=== PATIENT | female | born 1995 | race Hispanic/Latino ===

== ENCOUNTER 2021-08-18 08:36 | Emergency (ER) | payer OTHER ==
[~2021-08-18] VITALS: Ht 162.6 cm; Wt 59.0 kg
[2021-08-18] MEDS ORDERED: IBUPROFEN 600 MG TAB PO STA (08:51)
[2021-08-18] MEDS ORDERED: ACETAMINOPHEN 325 MG TAB PO ONE (09:00)
[2021-08-18] MEDS ORDERED: AMOXICILLIN500 MG PO (11:28)
== END 2021-08-18 12:00 | disposition home or self-care (01) ==
LOC: ER 08:46
DX: R50.9 Fever, unspecified (principal); J02.0 Streptococcal pharyngitis; D64.9 Anemia, unspecified; Z20.822 Contact with and (suspected) exposure to COVID-19
CPT/HCPCS: 83518; 99284; U0002